=== PATIENT | female | born 1995 | race Caucasian/White ===

== ENCOUNTER → 2018-08-26 | Outpatient (CLI) | payer OTHER ==
--- NOTE | 2018-08-26 11:11 | RAD ---
DATE: 08/26/2018 EXAM: DIGITAL DIAGNOSTIC BILATERAL, BREAST ULTRASOUND BILATERAL HISTORY: Bilateral breast discharge, strong family history of breast cancer COMPARISON: Baseline study This study was interpreted with the benefit of Computerized Aided Detection (CAD). Breast Density: HETERO The breast parenchyma is heterogenously dense, which could reduce sensitivity of mammography. Breast parenchyma level C. FINDINGS: No suspicious breast densities or microcalcifications are seen. A benign appearing lymph node type density is noted in the left axilla. Bilateral breast ultrasound, 08/26/2018: Both breasts were carefully scanned. The breast tissues are heterogeneous. No breast mass or unusual fluid collection is seen. IMPRESSION: 1. No mammographic or sonographic abnormality is detected. 2. Bilateral breast discharge is most commonly due to systemic factors. BI-RADS CATEGORY: 1 NEGATIVE RECOMMENDED FOLLOW-UP: CLIN FOLLOW UP IMAGING CLINICALLY INDICATED PQRS compliance statement: Patient information was entered into a reminder system with a target due date for the next mammogram. Mammography is a sensitive method for finding small breast cancers, but it does not detect them all and is not a substitute for careful clinical examination. A negative mammogram does not negate a clinically suspicious finding and should not result in delay in biopsying a clinically suspicious abnormality. "Our facility is accredited by the [employer] Mammography Program."
== END | disposition home or self-care (01) ==
LOC: US 08:48
PROVIDERS: ATTEND Family Medicine
DX: N64.52 Nipple discharge (principal); Z80.3 Family history of malignant neoplasm of breast
CPT/HCPCS: 76641; 77066

== ENCOUNTER 2019-03-03 16:18 | Emergency (ER) | payer OTHER ==
[~2019-03-03] VITALS: Ht 165.1 cm; Wt 81.6 kg
[2019-03-03] MEDS ORDERED: IV NORMAL SALINE 1,000ML 1,000 ML IV SCH (16:36)
--- NOTE | 2019-03-03 16:42 | PHYS DOC ---
Past History Past Medical History: Hypertension (MELYSSA RIVAS DO) Smoking: Non-smoker Alcohol Use: None Drug Use: None (MELYSSA RIVAS DO) Adult General Chief Complaint Chief Complaint: CHEST PAIN HPI HPI Patient is a 23-year-old female presents complaining of chest discomfort that started last night. Radiation to her left neck. Worse with deep breaths. No association with exertion. She had 4 episodes of nausea and vomiting last night with this. No blood in the emesis. Also noted that her head felt like it would explode. Not worst headache of life. No headache at this time. No weakness, numbness, tingling or paresthesias. No trauma. Denies any PE risk factors. She has a history of hypertension but is not currently taking any medicine for it.[] (FREEMANCANDELARIOMELYSSA ) Review of Systems Review of Systems Constitutional: Denies fever or chills [] Eyes: Denies change in visual acuity, redness, or eye pain [] HENT: Denies nasal congestion or sore throat [] Respiratory: Denies cough or shortness of breath [] Cardiovascular: No additional information not addressed in HPI [] GI: Denies abdominal pain, bloody stools or diarrhea [] : Denies dysuria or hematuria [] Musculoskeletal: Denies back pain or joint pain [] Integument: Denies rash or skin lesions [] Neurologic: Denies headache currently, no focal weakness or sensory changes [] Endocrine: Denies polyuria or polydipsia [] All other systems were reviewed and found to be within normal limits, except as documented in this note. (MERCEDESELISACANDELARIOMELYSSA ) Physical Exam Physical Exam Constitutional: Well developed, well nourished, no acute distress, non-toxic appearance. [] HENT: Normocephalic, atraumatic, bilateral external ears normal, oropharynx heather st, no oral exudates, nose normal. [] Eyes: PERRLA, EOMI, conjunctiva normal, no discharge. [] Neck: Normal range of motion, no tenderness, supple, no stridor. [] Cardiovascular:Heart rate regular rhythm, no murmur [] Lungs & Thorax: Bilateral breath sounds clear to auscultation, there is mild lo wer sternal tenderness to palpation that re-creates the chest discomfort. [] Abdomen: Bowel sounds normal, soft, no tenderness, no masses, no pulsatile masses. [] Skin: Warm, dry, no erythema, no rash. [] Back: No tenderness, no CVA tenderness. [] Extremities: No tenderness, no cyanosis, no clubbing, ROM intact, no edema. [] Neurologic: Alert and oriented X 3, normal motor function, normal sensory fu nction, no focal deficits noted. [] Psychologic: Affect normal, judgement normal, mood normal. [] (MELYSSA RIVAS DO) EKG EKG EKG shows a sinus rhythm at 87 bpm, normal axis, normal QTC, no ST elevations. No old EKG available for comparison. Interpreted by me at 1629.[] (MELYSSA RIVAS DO) Radiology/Procedures Radiology/Procedures PROCEDURE: PORTABLE CHEST 1V PORTABLE CHEST 1V Clinical indications: Chest pain. History of high blood pressure. COMPARISON: None available. Findings: No acute lung infiltrate or pleural effusion or pulmonary edema or lung mass or pneumothorax is seen. The heart size, pulmonary vasculature, mediastinum and both raj are unremarkable. Impression: No acute radiographic abnormality is seen. [] (MELYSSA RIVAS DO) Course & Med Decision Making Course & Med Decision Making Pertinent Labs and Imaging studies reviewed. (See chart for details) ED course: Patient arrived, was placed in bed, and tolerated exam well. At the time of this dictation laboratory testing is pending. Patient care was endorsed to the oncoming physician at 1800.[] (MELYSSA RIVAS DO) Course & Med Decision Making Pt. requesting discharge . Patient to follow-up at [facility]. Patient review ED workup labs and x-rays. Patient to get scheduled bubble test for her ASD. Patient return if any concerns. Patient take a daily aspirin. Impression 1.Chest pain 2. History ASD (JAMILA HANCOCK MD) Dragon Disclaimer Dragon Disclaimer This electronic medical record was generated, in whole or in part, using a voice recognition dictation system. (MELYSSA RIVAS DO) Departure Departure: Referrals: JOSE NORIEGA DO (PCP) Scripts Ondansetron Hcl (ZOFRAN) 8 Mg Tablet 8 MG PO QIDPRN PRN for nv, #30 BOT Prov: JAMILA HANCOCK MD 03/03/19 Aspirin (ASPIRIN) 81 Mg Tab.chew 81 MG PO DAILY for cardiac, #90 TAB Prov: JAMILA HANCOCK MD 03/03/19 Hydrocodone/Ibuprofen (HYDROCODONE-IBUPROFEN 7.5-200 ) 1 Each Tablet 1 TAB PO PRN Q6HRS PRN for PAIN, #30 TAB 0 Refills Prov: JAMLIA HANCOCK MD 03/03/19 MELYSSA RIVAS DO March 03, 2019 16:42 JAMILA HANCOCK MD March 04, 2019 05:54
[2019-03-03] MEDS ORDERED: KETOROLAC 15 MG/ML VIAL. IV ONE (16:45)
--- NOTE | 2019-03-03 17:05 | RAD ---
PORTABLE CHEST 1V Clinical indications: Chest pain. History of high blood pressure. COMPARISON: None available. Findings: No acute lung infiltrate or pleural effusion or pulmonary edema or lung mass or pneumothorax is seen. The heart size, pulmonary vasculature, mediastinum and both raj are unremarkable. Impression: No acute radiographic abnormality is seen. Electronically signed by: Rusty Colon MD (03/03/2019 5:02 PM) [facility]
[2019-03-03 17:22] LABS: BASO % 1 % (0-3); EOS # 0.1 x10^3/uL (0.0-0.7); EOS % 1 % (0-3); HEMATOCRIT 37.5 % (36.0-47.0); HEMOGLOBIN 12.7 g/dL (12.0-15.5); LYMPH # 1.7 x10^3/uL (1.0-4.8); LYMPH % 36 % (24-48); MEAN CORPUSCULAR HEMOGLOBIN 29 pg (25-35); MEAN CORPUSCULAR HGB CONC 34 g/dL (31-37); MEAN CORPUSCULAR VOLUME 86 fL (79-100); MONO # 0.4 x10^3/uL (0.0-1.1); MONO % 7 % (0-9); NEUT # 2.7 x10^3uL (1.8-7.7); NEUT % 55 % (31-73); PLATELET COUNT 294 x10^3/uL (140-400); RED BLOOD COUNT 4.35 x10^6/uL (3.50-5.40); RED CELL DISTRIBUTION WIDTH 12.5 % (11.5-14.5); WHITE BLOOD COUNT 4.9 x10^3/uL (4.0-11.0)
[2019-03-03 17:39] LABS: ALBUMIN 4.1 g/dL (3.4-5.0); ALBUMIN/GLOBULIN RATIO 1.1 (1.0-1.7); CALCIUM 9.3 mg/dL (8.5-10.1); CREATININE 0.8 mg/dL (0.6-1.0); GFR 87.4; MAGNESIUM 2.2 mg/dL (1.8-2.4); POTASSIUM 3.9 mmol/L (3.5-5.1); TOTAL BILIRUBIN 0.5 mg/dL (0.2-1.0)
[2019-03-03 18:05] LABS: BARBITURATES NEG (NEG); BENZODIAZEPINES NEG (NEG); CANNABINOIDS NEG (NEG); COCAINE NEG (NEG); METHADONE NEG (NEG); OPIATES NEG (NEG); PHENCYCLIDINE NEG (NEG)
[2019-03-03 18:10] LABS: AMPHETAMINE/METHAMPHETAMINE NEG (NEG)
--- NOTE | 2019-03-03 18:11 | EKG ---
[address] [address] Test Date: 2019-03-03 Test Time: 16:28:00 Pat Name: RUBEN DOE Department: Room: Gender: F Political Analyst: : 1995 Requested By: MELYSSA RIVAS Order Number: [id number] Reading MD: Measurements Intervals [place] Rate: 87 P: 45 AK: 210 QRS: 51 QRSD: 78 T: 30 QT: 364 QTc: 439 Interpretive Statements SINUS RHYTHM NO SPECIFIC ECG ABNORMALITIES RI6.01 No previous ECG available for comparison
[2019-03-03 18:16] LABS: BACTERIA,URINE FEW /HPF (0-FEW); BILIRUBIN,URINE NEG (NEG); CLARITY,URINE HAZY; COLOR,URINE YELLOW; GLUCOSE,URINE NEG (NEG); NITRITE,URINE NEG (NEG); UROBILINOGEN,URINE 0.2 mg/dL (0.2 mg/dL)
[2019-03-03 18:17] LABS: SQUAMOUS EPITHELIAL CELL,UR OCC /LPF
[2019-03-03] MEDS ORDERED: ASPI-630 PO (18:45)
[2019-03-03] MEDS ORDERED: HYDR-1179 PO (18:45)
[2019-03-03] MEDS ORDERED: ONDA8TAB9 PO (19:07)
[2019-03-03 21:20] VITALS: BP 133/75
== END 2019-03-03 19:11 | disposition home or self-care (01) ==
LOC: ER 16:18
DX: R07.89 Other chest pain (principal); R11.2 Nausea with vomiting, unspecified; I10 Essential (primary) hypertension; Q21.1 Atrial septal defect
CPT/HCPCS: 36415; 71045; 80053; 80307; 81001; 81025; 83690; 83735; 83880; 84443; 84484; 85025; 85379; 85610; 93005; 96361; 96374; 99285; J1885; J7030